=== PATIENT | female | born 1965 | race Caucasian/White ===

== ENCOUNTER 2016-06-09 08:46 | Day surgery (SDC) | payer OTHER ==
[2016-06-09] MEDS ORDERED: LIDOCAINE 1% 2 ML VIAL ID PRN (08:55)
[2016-06-09] MEDS ORDERED: LACTATED RINGERS 1,000 ML IV SCH ×3 (08:55→12:24)
[2016-06-09] MEDS ORDERED: IV START KIT ONE (08:56)
[2016-06-09] MEDS ORDERED: BUPIVACAINE 0.5% W/EPI SDV 30 ML VIAL ONE (10:47)
[2016-06-09] MEDS ORDERED: LIDOCAINE 2% (MULTI DOSE) 10 ML VIAL ONE (10:47)
[2016-06-09] MEDS ORDERED: PROPOFOL 20 ML IV ONE (10:47)
[2016-06-09] MEDS ORDERED: MIDAZOLAM HCL 1 MG/ML 2ML VIAL ONE (10:47)
[2016-06-09] MEDS ORDERED: FENTANYL 100 MCG/2 ML VIAL ONE (10:47)
[2016-06-09] MEDS ORDERED: ONDANSETRON 4 MG/2ML 2 ML VIAL ONE (11:21)
[2016-06-09] MEDS ORDERED: METOCLOPRAMIDE HCL 5 MG/ML 2ML VIAL ONE (11:21)
[2016-06-09] MEDS ORDERED: DEXAMETHASONE SOD PHOS 4 MG/1 ML VIAL ONE (11:21)
[2016-06-09] MEDS ORDERED: ONDANSETRON 4 MG/2ML 2 ML VIAL IV PRN ×2 (11:23→12:24)
[2016-06-09] MEDS ORDERED: FENTANYL 100 MCG/2 ML VIAL IV PRN (11:23)
[2016-06-09] MEDS ORDERED: ATROPINE SULFATE 0.4 MG/1 ML VIAL IV PRN (11:23)
[2016-06-09] MEDS ORDERED: PROMETHAZINE HCL 25 MG/ML VIAL IM PRN (11:23)
[2016-06-09] MEDS ORDERED: NALOXONE HCL 0.4 MG/ML VIAL IV PRN (11:23)
[2016-06-09] MEDS ORDERED: HYDROMORPHONE HCL 1 MG/ML SYRINGE IV PRN ×2 (11:23→12:24)
[2016-06-09] MEDS ORDERED: BACITRACIN 1 APPLIC/500 UNIT PACKET TP ONE (11:24)
[2016-06-09] MEDS ORDERED: LACTATED RINGERS 1,000 ML ONE (11:47)
[2016-06-09] MEDS ORDERED: OXYCODONE HCL 5 MG TABLET PO PRN (12:24)
[2016-06-09] MEDS ORDERED: KETOROLAC TROMETHAMINE 30 MG/ML 1 ML VIAL IV PRN (12:24)
--- NOTE | 2016-06-09 16:40 | OP ---
ELTON HOLLIDAY [id number] DATE OF PROCEDURE: 06/09/2016 SURGEON: Dr. 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 POSTOPERATIVE DIAGNOSIS: Vulvar intraepithelial neoplasia Grade-3. OPERATION: WIDE LOCAL EXCISON OF VULVAR LESION. ANESTHESIA: General. FINDINGS: There was approximately a 2 x 3 cm raised white lesion on the right perineal area. TECHNICAL PROCEDURE: After induction of satisfactory general anesthesia, the patient was placed in the supine lithotomy position, prepped and draped in the usual fashion. The area underneath the lesion was infiltrated with 1/2% Marcaine solution with epinephrine. An elliptical piece of tissue was then excised to excise the lesion, with what appeared to be adequate margins. Hemostasis was then obtained with electrocautery. The wound was then closed with interrupted horizontal mattress sutures of 4-0 nylon. The patient tolerated the procedure well and left the operating room awake and in good condition, with no complications. Instrument and sponge counts were correct. Estimated blood loss was minimal. There was no blood replacement. SPECIMENS REMOVED: A vulvar lesion.
--- NOTE | 2016-06-13 15:26 | SURGPATH ---
[facility] [address] [place] [id number] Patient Name: ELTON HOLLIDAY MR#: [id number] : 1965 Gender: F Specimen #: [id number] Collected: 06/09/2016 Received: 06/12/2016 Reported: 06/13/2016 Submitting Phys: AVA CHAPIN Copy To Phys: [facility] Clinical History / Pre-Operative Diagnosis: VULVAR LESIONS Specimen Source / Surgical Procedure Performed: VULVAR LESION HIGH PRIORITY DIAGNOSIS. REQUIRES CLINICAL ATTENTION Interpretation: VULVA, EXCISION: - MICROINVASIVE SQUAMOUS CELL CARCINOMA (LESS THAN 1 MM INVASION) - ARISING WITHIN SQUAMOUS CELL CARCINOMA IN SITU - MARGINS FREE OF IN SITU AND INVASIVE CARCINOMA - STAGE: pT1a [FIGO IA] Vulvar Cancer Case Summary SPECIMEN: Vulva PROCEDURE: Local excision LYMPH NODE SAMPLING: Not applicable SPECIMEN SIZE: Greatest dimension: 2.2 cm TUMOR SITE: Not specified TUMOR DIMENSION: Linear dimension of invasive carcinoma: 0.3 cm Linear dimension of in situ carcinoma: 1.2 cm TUMOR FOCALITY: Unifocal HISTOLOGIC TYPE: Microinvasive squamous cell carcinoma Arising within squamous cell carcinoma in situ HISTOLOGIC GRADE: G1: Well differentiated MICROSCOPIC TUMOR EXTENSION: Depth of invasion: Less than 1mm TUMOR BORDER: Pushing MARGINS: Uninvolved by invasive carcinoma Distance of invasive carcinoma from peripheral margin: 1.0 cm Distance of invasive carcinoma from deep margin: 0.5 cm Distance of in situ carcinoma from peripheral margin: 0.3 cm LYMPH VASCULAR INVASION: Not identified TNM Descriptors: Not applicable PRIMARY TUMOR (pT) [FIGO]: pT1a [IA]: 2 cm or less, stromal invasion 1.0 mm or less REGIONAL LYMPH NODES (pN): pNX: Cannot be assesed. No nodes submitted Electronically Signed Out Ez Stevens M.D. Gross Description: The specimen is received in a formalin filled container labeled with the patient's name and "vulvar lesion". A skin ellipse is 2.2 x 1.0 x 0.4 cm. There is a central 1.2 x 0.7 cm raised, nodular white lesion. The surgical margins are inked and the specimen is cross sectioned perpendicular to the long axis. Totally embedded as four sections in one cassette. Charlene Astudillo Microscopic Description: Sections show irregular squamous epithelial hyperplasia with full thickness cytologic atypia. This represents squamous cell carcinoma in situ. Invasion is not identified. The margins are free of carcinoma. The closest peripheral margin is between 1mm and 2mm. This case was also seen at daily intradepartmental conference with concurrence of the attendees. 1: 03553 C51.9 1: C51.8
== END 2016-06-09 13:15 | disposition home or self-care (01) ==
LOC: SDC 08:46
PROVIDERS: ATTEND Obstetrics & Gynecology
DX: D07.1 Carcinoma in situ of vulva (principal); F17.200 Nicotine dependence, unspecified, uncomplicated
CPT/HCPCS: 56620; J3010; J1100; J2765; J2250; J2405; J7120 ×2; A9270; J2001